=== PATIENT | female | born 1940 | race Caucasian/White ===

== ENCOUNTER 2019-11-10 10:25 | Inpatient (IN) ==
[2019-11-10] MEDS ORDERED: CeFAZolin Syr 2,000MG/20 ML 2,000 MG/20 ML SYRINGE IVPB ONE (10:47)
[2019-11-10] MEDS ORDERED: Ringers Solution, Lactated 1,000 ML IVC SCH ×2 (11:00→16:06)
[2019-11-10] MEDS ORDERED: Lidocaine -MPF 2% 2 ML VIAL ONE (11:02)
[2019-11-10] MEDS ORDERED: *HR* Succinylcholine 200 MG/10 ML VIAL IVP ONE (11:02)
[2019-11-10] MEDS ORDERED: Dexamethasone 4 MG/ML VIAL ONE (11:02)
[2019-11-10] MEDS ORDERED: Ondansetron 4 MG/2 ML VIAL ONE (11:02)
[2019-11-10] MEDS ORDERED: Lidocaine -MPF 4% 5 ML AMPUL ONE (11:08)
[2019-11-10] MEDS ORDERED: Ondansetron 4 MG/2 ML VIAL IVP PRN ×2 (11:26→16:06)
[2019-11-10] MEDS ORDERED: *HR* Promethazine 25 MG/ML VIAL IVP PRN ×2 (11:26→16:06)
[2019-11-10] MEDS ORDERED: Gabapentin 300 MG CAPSULE PO ONE (11:29)
[2019-11-10] MEDS ORDERED: Celecoxib 200 MG CAPSULE PO ONE (11:29)
[2019-11-10] MEDS ORDERED: Vancomycin 1,000 MG VIAL ONE (11:29)
[2019-11-10] MEDS ORDERED: Ethanol\\Acetic Acid\\Na Ace\\Ben 1,000 ML IRRIG.SOLN IR ONE (11:30)
[2019-11-10] MEDS ORDERED: *HR* FentaNYL (PF) 100 MCG/2 ML VIAL ONE (11:40)
[2019-11-10] MEDS ORDERED: Acetaminophen IV 1,000 MG/100 ML INFUS..BTL ONE (11:55)
[2019-11-10] MEDS ORDERED: Povidone-Iodine 45 ML, Sodium Chloride IRRigation 1,000 ML IR ONE (12:20)
[2019-11-10] MEDS ORDERED: Tranexamic Acid 1,000 MG/10 ML VIAL ONE (12:24)
[2019-11-10] MEDS: *HR* FentaNYL (PF) 100 MCG/2 ML VIAL IVP PRN ×4 (13:51→14:26)
[2019-11-10 15:32] LABS: Hematocrit 32.6 % (35.3-44.9)
[2019-11-10] MEDS ORDERED: MOM Conc 10 ML UD.LIQ PO PRN (16:06)
[2019-11-10] MEDS ORDERED: D5% in Water 1,000 ML IVC PRN (16:06)
[2019-11-10] MEDS ORDERED: Sennosides 8.6 MG TABLET PO PRN (16:06)
[2019-11-10] MEDS ORDERED: Naloxone 0.4 MG/ML INJ IVP PRN (16:06)
[2019-11-10] MEDS ORDERED: Acetaminophen IV 1,000 MG/100 ML INFUS..BTL IVPB ONE (16:06)
[2019-11-10] MEDS ORDERED: Dextrose Gel 15 GM/37.5 ML TUBE PO PRN ×2 (16:06)
[2019-11-10] MEDS ORDERED: *HR* Dextrose 50 % in Water (Vial) 50 ML VIAL IVP PRN (16:06)
[2019-11-10] MEDS: Ascorbic Acid 500 MG TABLET PO SCH (18:21)
[2019-11-10] MEDS: Insulin LISPRO 300 UNITS/3 ML VIAL SQ SCH ×2 (18:21→19:54)
[2019-11-10] MEDS: Gabapentin 400 MG CAPSULE PO SCH ×2 (18:21→20:04)
[2019-11-10] MEDS: CeFAZolin 2 GM/120 ML BAG IVPB SCH (20:04)
[2019-11-10] MEDS: *HR* OxyCODONE Immed Rel 5 MG TABLET PO PRN (23:28)
[2019-11-11] MEDS: CeFAZolin 2 GM/120 ML BAG IVPB SCH (03:21)
[2019-11-11 04:46] LABS: Basophils % 0.3 %; Eosinophils % 0.1 %; Hematocrit 25.2 % (35.3-44.9); Immature Granulocytes % 0.3 % (0-4); Lymphocytes # 1.1 K/mcL (0.6-4.6); Lymphocytes % 13.7 %; Mean Corpuscular HGB Conc 33.3 g/dL (31.6-35.5); Mean Corpuscular Hemoglobin 30.9 pg (28.0-33.3); Mean Corpuscular Volume 92.6 fL (83.0-100.0); Mean Platelet Volume 10.2 fL (9.4-12.4); Monocytes # 0.9 K/mcL (0.0-1.3); Neutrophils # 5.9 K/mcL (1.6-8.9); Platelet Count 169 K/mcL (140-400); Red Blood Count 2.72 M/mcL (3.82-4.97); Red Cell Distribution Width 12.3 % (11.5-14.5); Segmented Neutrophils % 74.6 %; White Blood Count 7.9 K/mcL (4.3-11.1)
[2019-11-11 04:49] LABS: Hemoglobin 8.4 g/dL (11.5-15.4)
[2019-11-11 05:02] LABS: BUN/Creatinine Ratio 18 (6-26); Blood Urea Nitrogen 13 mg/dL (8-23); Carbon Dioxide 23 mEq/L (23-29); Chloride 107 mEq/L (98-107); Glucose 123 mg/dL (70-105); Osmolality,Calculated 285 (280-300); Potassium 3.9 mEq/L (3.5-5.1); Sodium 137 mEq/L (136-145); eGFR For African Americans > 60 (> 60); eGFR For Non-African Americans > 60 (> 60)
[2019-11-11] MEDS: Insulin LISPRO 300 UNITS/3 ML VIAL SQ SCH ×4 (07:59→21:02)
[2019-11-11] MEDS: Ascorbic Acid 500 MG TABLET PO SCH ×2 (08:10→15:12)
[2019-11-11] MEDS: Gabapentin 400 MG CAPSULE PO SCH ×3 (08:10→21:01)
[2019-11-11] MEDS: atenoloL 25 MG TABLET PO SCH (08:11)
[2019-11-11] MEDS: Multivit/Ca/Min/Fe/FA 1 TAB TABLET PO SCH (08:11)
[2019-11-11] MEDS: Lactobacillus 1 EACH CAP.SPRINK PO SCH (08:11)
[2019-11-11] MEDS: Cholecalciferol (D-3) 1,000 UNIT (25MCG) TABLET PO SCH (08:11)
[2019-11-11] MEDS: PARoxetine 20 MG TABLET PO SCH (08:11)
[2019-11-11] MEDS ORDERED: NON-FORMULARY MEDICATION 1 EACH EACH (Vit C/E/Zn/Coppr/Lutein/Zeaxan [Preservision Areds 2 PO SCH (09:00)
[2019-11-11] MEDS: *HR* OxyCODONE Immed Rel 5 MG TABLET PO PRN (15:12)
[2019-11-11] MEDS: Aspirin Enteric Coated 81 MG Tablet PO SCH (15:12)
[2019-11-12] MEDS: *HR* OxyCODONE Immed Rel 5 MG TABLET PO PRN ×2 (00:36→15:49)
[2019-11-12 06:22] LABS: Basophils % 0.3 %; Immature Granulocytes % 0.2 % (0-4); Monocytes % 13.3 %
[2019-11-12 06:24] LABS: Eosinophils # 0.2 K/mcL (0.0-0.6); Hemoglobin 7.8 g/dL (11.5-15.4); Immature Platelets 2.4 % (1.1-6.1); Lymphocytes # 1.7 K/mcL (0.6-4.6); Lymphocytes % 29.1 %; Mean Corpuscular HGB Conc 31.2 g/dL (31.6-35.5); Mean Corpuscular Hemoglobin 29.7 pg (28.0-33.3); Mean Corpuscular Volume 95.1 fL (83.0-100.0); Mean Platelet Volume 10.2 fL (9.4-12.4); Monocytes # 0.8 K/mcL (0.0-1.3); Neutrophils # 3.2 K/mcL (1.6-8.9); Nucleated Red Blood Cells 0.3 /100 WBC (0); Platelet Count 139 K/mcL (140-400); Red Blood Count 2.63 M/mcL (3.82-4.97); Red Cell Distribution Width 12.5 % (11.5-14.5); Segmented Neutrophils % 54.1 %; White Blood Count 5.9 K/mcL (4.3-11.1)
[2019-11-12 06:45] LABS: BUN/Creatinine Ratio 23 (6-26); Blood Urea Nitrogen 15 mg/dL (8-23); Calcium 8.8 mg/dL (8.6-10.3); Carbon Dioxide 24 mEq/L (23-29); Chloride 108 mEq/L (98-107); Glucose 111 mg/dL (70-105); Osmolality,Calculated 288 (280-300); Potassium 3.7 mEq/L (3.5-5.1); Sodium 138 mEq/L (136-145); eGFR For African Americans > 60 (> 60); eGFR For Non-African Americans > 60 (> 60)
[2019-11-12] MEDS: Insulin LISPRO 300 UNITS/3 ML VIAL SQ SCH ×4 (07:32→21:45)
[2019-11-12] MEDS: Gabapentin 400 MG CAPSULE PO SCH ×3 (08:20→20:30)
[2019-11-12] MEDS: Lactobacillus 1 EACH CAP.SPRINK PO SCH (08:21)
[2019-11-12] MEDS: atenoloL 25 MG TABLET PO SCH (08:21)
[2019-11-12] MEDS: PARoxetine 20 MG TABLET PO SCH (08:22)
[2019-11-12] MEDS: Multivit/Ca/Min/Fe/FA 1 TAB TABLET PO SCH (08:22)
[2019-11-12] MEDS: Ascorbic Acid 500 MG TABLET PO SCH ×2 (08:22→15:49)
[2019-11-12] MEDS: Cholecalciferol (D-3) 1,000 UNIT (25MCG) TABLET PO SCH (08:22)
[2019-11-12] MEDS: Aspirin Enteric Coated 81 MG Tablet PO SCH (08:22)
[2019-11-12] MEDS ORDERED: 0.9 % Sodium Chloride 250 ML ONE (17:02)
[2019-11-13] MEDS ORDERED: ESTRADIOL APPL VG SCH (09:00)
[2019-11-13] MEDS: Insulin LISPRO 300 UNITS/3 ML VIAL SQ SCH ×4 (10:01→21:38)
[2019-11-13] MEDS: Multivit/Ca/Min/Fe/FA 1 TAB TABLET PO SCH (10:07)
[2019-11-13] MEDS: PARoxetine 20 MG TABLET PO SCH (10:07)
[2019-11-13] MEDS: atenoloL 25 MG TABLET PO SCH (10:07)
[2019-11-13] MEDS: Gabapentin 400 MG CAPSULE PO SCH ×3 (10:07→21:19)
[2019-11-13] MEDS: Aspirin Enteric Coated 81 MG Tablet PO SCH (10:07)
[2019-11-13] MEDS: Ascorbic Acid 500 MG TABLET PO SCH ×2 (10:07→16:13)
[2019-11-13] MEDS: *HR* OxyCODONE Immed Rel 5 MG TABLET PO PRN (10:08)
[2019-11-13] MEDS: Cholecalciferol (D-3) 1,000 UNIT (25MCG) TABLET PO SCH (10:08)
[2019-11-13] MEDS: Lactobacillus 1 EACH CAP.SPRINK PO SCH (10:08)
[2019-11-13 12:18] LABS: Hematocrit 27.6 % (35.3-44.9)
[2019-11-14] MEDS: *HR* OxyCODONE Immed Rel 5 MG TABLET PO PRN (03:43)
[2019-11-14] MEDS: Insulin LISPRO 300 UNITS/3 ML VIAL SQ SCH (08:12)
[2019-11-14] MEDS: Ascorbic Acid 500 MG TABLET PO SCH (08:15)
[2019-11-14] MEDS: Gabapentin 400 MG CAPSULE PO SCH (08:15)
[2019-11-14] MEDS: Aspirin Enteric Coated 81 MG Tablet PO SCH (08:16)
[2019-11-14] MEDS: Multivit/Ca/Min/Fe/FA 1 TAB TABLET PO SCH (08:16)
[2019-11-14] MEDS: atenoloL 25 MG TABLET PO SCH (08:16)
[2019-11-14] MEDS: PARoxetine 20 MG TABLET PO SCH (08:16)
[2019-11-14] MEDS: Lactobacillus 1 EACH CAP.SPRINK PO SCH (08:16)
[2019-11-14] MEDS: Cholecalciferol (D-3) 1,000 UNIT (25MCG) TABLET PO SCH (08:16)
[2019-11-14 10:45] VITALS: BP 128/76
[2019-11-15] MEDS ORDERED: NON-FORMULARY MEDICATION 1 EACH EACH (Alendronate Sodium [Fosamax] 70 MG) PO SCH (09:55)
== END 2019-11-14 15:01 | disposition home health service (06) | DRG 470 ==
LOC: SAMDAY 10:25 → 3NENU 15:43
PROVIDERS: ADMIT Orthopaedic Surgery; ATTEND Orthopaedic Surgery